=== PATIENT | female | born 1960 | race Caucasian/White ===

== ENCOUNTER 2017-04-15 03:39 | Emergency (ER) | payer OTHER ==
[~2017-04-15] VITALS: Ht 170.2 cm; Wt 112.0 kg
[~2017-04-15 03:39] MED LIST: CYMBALTA20 MG PO; PAXIL20 MG PO; TRAZODONE HCL50 MG PO
[2017-04-15] MEDS ORDERED: LIDODERM 5% P1 PATCH TD (07:02)
[2017-04-15] MEDS ORDERED: NORCO 5/3251 TABLET PO (07:03)
[2017-04-15] MEDS ORDERED: MEDROL DOSEPAK4 MG PO (07:03)
[2017-04-15 07:16] VITALS: BP 137/75
== END 2017-04-15 07:19 | disposition home or self-care (01) ==
LOC: EME 03:39
DX: M54.42 Lumbago with sciatica, left side (principal); G89.29 Other chronic pain; Z88.0 Allergy status to penicillin; Z88.6 Allergy status to analgesic agent
CPT/HCPCS: 99281; 99283; J7512

== ENCOUNTER 2017-07-04 21:12 | Emergency (ER) | payer OTHER ==
[~2017-07-04] VITALS: Ht 170.2 cm; Wt 110.2 kg
[~2017-07-04 21:12] MED LIST changes: +LIDODERM 5% P1 PATCH TD; +MEDROL DOSEPAK4 MG PO; +NON-ASPIRIN PA500 M1 PO; +NORCO 5/3251 TABLET PO; +TRAMADOL HCL50 MG PO; +ZOFRAN4 MG PO
[2017-07-05 01:35] LABS: HEMATOCRIT 35.8 % (36.0-46.0); MCH 30.7 PG (29.0-34.0); MCHC 34.1 G/DL (30.0-36.0); MCV 89.9 FL (83-99); MEAN PLAT.VOLUME 10.2 uM^3 (9.5-12.4); PLATELET COUNT 180 K/uL (156-360); RBC DIS.WIDTH-CV 12.6 % (11.8-14.6); RBC DIS.WIDTH-SD 41.6 % (39-53); RED BLOOD COUNT 3.98 M/uL (3.80-5.20); WHITE BLOOD COUNT 8.2 K/uL (4.1-10.2)
[2017-07-05 01:44] LABS: CHLORIDE 95 mEq/L (99-109); POTASSIUM 5.3 mEq/L (3.7-5.4); SODIUM 120 mEq/L (136-147)
[2017-07-05 01:46] LABS: GLUCOSE 147 mg/dL (70-99)
[2017-07-05 01:48] LABS: TOTAL BILIRUBIN 0.1 mg/dL (0.0-1.0)
[2017-07-05 01:49] LABS: ALKALINE PHOSPHATASE 89 IU/L (3-129)
[2017-07-05 01:50] LABS: GFR ESTIMATE (CALCULATED) > 59 mL/min/
[2017-07-05 01:51] LABS: UREA NITROGEN (BUN) 6 mg/dL (9-23)
[2017-07-05 02:05] LABS: ANION GAP 8 MEQ/L (2-14)
[2017-07-05 02:10] LABS: LIPASE 65 U/L (1.0-51.0)
[2017-07-05 02:52] LABS: ADD MIUA? YES; BILIRUBIN NEGATIVE; BLOOD SMALL; COLOR YELLOW ((YELLOW)); GLUCOSE (STRIP) NEGATIVE; KETONES NEGATIVE; LEUKOCYTES TRACE; NITRITE NEGATIVE; PROTEIN (STRIP) NEGATIVE; UROBILINOGEN 0.2 MG/DL (0.2-1.0)
[2017-07-05 02:56] LABS: BACTERIA RARE /HPF; EPITHELIAL CELLS 2+ /HPF; MUCUS 1+ /LPF; RED BLOOD CELLS 0-5 /HPF (0-5); UCUL ADDED? YES
[2017-07-05] MEDS ORDERED: BACTRIM,SEPT1 TABLET PO (04:33)
[2017-07-05 04:34] LABS: CREATININE 0.7 mg/dL (0.6-1.3); POTASSIUM 3.5 mEq/L (3.7-5.4)
[2017-07-05 04:38] LABS: GLUCOSE 111 mg/dL (70-99)
[2017-07-05 04:40] LABS: ANION GAP 8 MEQ/L (2-14)
[2017-07-05 04:42] LABS: GFR ESTIMATE (CALCULATED) > 59 mL/min/
[2017-07-05 04:43] LABS: UREA NITROGEN (BUN) 6 mg/dL (9-23)
[2017-07-05 04:47] LABS: CHLORIDE 106 mEq/L (99-109); POTASSIUM 3.4 mEq/L (3.7-5.4); SODIUM 138 mEq/L (136-147)
[2017-07-05 04:56] VITALS: BP 126/63
== END 2017-07-05 04:57 | disposition home or self-care (01) ==
LOC: EME 21:12
PROVIDERS: Emergency Medicine
DX: G89.18 Other acute postprocedural pain (principal); N39.0 Urinary tract infection, site not specified; Z98.890 Other specified postprocedural states; Z90.710 Acquired absence of both cervix and uterus; E87.1 Hypo-osmolality and hyponatremia; Z88.0 Allergy status to penicillin
CPT/HCPCS: 74177; 80047; 80048 91; 80053; 81003; 83605; 83690; 85027; 87040; 87077; 87086; 87186; 99281; 99285; J7030